=== PATIENT | male | born 1940 | race Caucasian/White ===

== ENCOUNTER 2017-08-09 13:32 | Emergency (ER) | payer BC ==
[~2017-08-09] VITALS: Ht 170.2 cm; Wt 77.0 kg
[2017-08-09 13:38] VITALS: BP 175/74; PULSE 77; RESP 15; TEMP 98.5; O2SAT 98
--- NOTE | 2017-08-09 14:03 | PD ---
HPI Chief Complaint: Skin Problem Time Seen by Provider: 13:46 Travel History International Travel<30 days: No Contact w/Intl Traveler<30days: No Traveled to known affect area: No History of Present Illness HPI 77-year-old male with a history of diabetes peripheral neuropathy presents emergency department complaining of a lesion to the left second toe that has been present for approximately 8 days. Patient states that initially there was a blister present that has since popped and has developed an ulcer. Patient states that the pain is minimal as he does have neuropathy. Patient denies fever, chills, nausea, vomiting, diarrhea. States his blood sugars are usually under control in the 100s however, because patient is on vacation, his blood sugar has been over 200. Patient states that he does see a typing office worker regularly when home. PFSH Past Medical History Cerebrovascular Accident: Yes (effected the speech ) Diabetes: Yes Patient Takes Glucophage: Yes (metformin) Hypertension: Yes Past Surgical History Coronary Stent: Yes Social History Alcohol Use: No Tobacco Use: No Substance Use: No Allergies-Medications (Allergen,Severity, Reaction): Coded Allergies: No Known Allergies (Unverified , 08/09/17) Reported Meds & Prescriptions Reported Meds & Active Scripts Active Clindamycin (Clindamycin HCl) 300 Mg Cap 300 Mg PO TID 10 Days Cipro (Ciprofloxacin HCl) 500 Mg Tab 500 Mg PO BID 10 Days Reported Fish Oil + D3 (Fish Oil-Cholecalciferol) 1,200-1,000 Mg-Unit Cap 1 Cap PO DAILY Tylenol Extra Strength (Acetaminophen) 500 Mg Tablet 2 Tab PO HS Tylenol Arthritis (Acetaminophen) 650 Mg Tablet.er 2 Tab PO DAILY Memantine 10 Mg Tab 10 Mg PO BID Plavix (Clopidogrel Bisulfate) 75 Mg Tab 75 Mg PO DAILY Aspirin 81 Mg Chew 81 Mg CHEW DAILY Nitroglycerin SL (Nitroglycerin) 0.4 Mg Subl 0.4 Mg SL DIRECTED PRN ONE TABLET UNDER THE TONGUE NEEDED FOR CHEST PAIN, MAY REPEAT EVERY FIVE MINUTES FOR A TOTAL OF 3 DOSES OR CALL 911 IF NO RELIEF Atorvastatin (Atorvastatin Calcium) 40 Mg Tab 40 Mg PO HS Lantus Inj (Insulin Glargine) 1,000 Unit/10 Ml Vial 40 Units SQ HS Lisinopril 40 Mg Tab 40 Mg PO DAILY Tamsulosin (Tamsulosin HCl) 0.4 Mg Cap 0.4 Mg PO HS Donepezil 10 Mg Tab 10 Mg PO HS Omeprazole 40 Mg Cap 40 Mg PO DAILY Metformin (Metformin HCl) 1,000 Mg Tab 1,000 Mg PO BIDPC Review of Systems Except as stated in HPI: all other systems reviewed are Neg Physical Exam Narrative GENERAL: Well-nourished in no apparent distress SKIN: Focused skin assessment warm/dry. HEAD: Atraumatic. Normocephalic. EYES: Pupils equal and round. No scleral icterus. No injection or drainage. ENT: No nasal bleeding or discharge. Mucous membranes pink and moist. NECK: Trachea midline. No JVD. CARDIOVASCULAR: Regular rate and rhythm. No murmur appreciated. RESPIRATORY: No accessory muscle use. Clear to auscultation. Breath sounds equal bilaterally. MUSCULOSKELETAL: No obvious deformities. No clubbing. No cyanosis. No edema. No CVA tenderness Left foot- 2nd toe, distal phalanges, medial aspect, 1cm, round ulceration with central necrosis, non tender to palp. NEUROLOGICAL: Awake and alert. No obvious cranial nerve deficits. Motor grossly within normal limits. Normal speech. PSYCHIATRIC: Appropriate mood and affect; insight and judgment normal. Data Data Last Documented VS Vital Signs Date Time Temp Pulse Resp B/P (MAP) Pulse Ox O2 Delivery O2 Flow Rate FiO2 08/09/17 17:15 08/09/17 16:45 75 19 97 Room Air 08/09/17 13:38 98.5 Orders Orders Basic Metabolic Panel (Bmp) (08/09/17 13:58) Complete Blood Count With Diff (08/09/17 13:58) Wound Culture And Gram Stain (08/09/17 13:58) Westergren Sedimentation Rate (08/09/17 13:58) C-Reactive Protein (Crp) (08/09/17 13:58) Blood Culture (08/09/17 13:58) Foot, Limited (2vws) (08/09/17 ) Vancomycin Inj (Vancomycin Inj) (08/09/17 14:45) Consult Podiatry (08/09/17 ) Ed Discharge Order (08/09/17 16:55) (Hub Use Only)Inp Phy Cons/Ref (08/09/17 17:20) Labs Laboratory Tests Test 08/09/17 14:20 White Blood Count 8.6 TH/MM3 Red Blood Count 3.40 MIL/MM3 Hemoglobin 10.5 GM/DL Hematocrit 28.8 % Mean Corpuscular Volume 84.7 FL Mean Corpuscular Hemoglobin 30.8 PG Mean Corpuscular Hemoglobin Concent 36.4 % Red Cell Distribution Width 15.2 % Platelet Count 209 TH/MM3 Mean Platelet Volume 8.2 FL Neutrophils (%) (Auto) 77.0 % Lymphocytes (%) (Auto) 13.7 % Monocytes (%) (Auto) 7.0 % Eosinophils (%) (Auto) 1.7 % Basophils (%) (Auto) 0.6 % Neutrophils # (Auto) 6.6 TH/MM3 Lymphocytes # (Auto) 1.2 TH/MM3 Monocytes # (Auto) 0.6 TH/MM3 Eosinophils # (Auto) 0.1 TH/MM3 Basophils # (Auto) 0.0 TH/MM3 CBC Comment DIFF FINAL Differential Comment Erythrocyte Sedimentation Rate 44 mm/hr Blood Urea Nitrogen 19 MG/DL Creatinine 1.12 MG/DL Random Glucose 243 MG/DL Calcium Level 8.5 MG/DL Sodium Level 136 MEQ/L Potassium Level 4.8 MEQ/L Chloride Level 102 MEQ/L Carbon Dioxide Level 27.8 MEQ/L Anion Gap 6 MEQ/L Estimat Glomerular Filtration Rate 63 ML/MIN C-Reactive Protein 0.49 MG/DL MDM Medical Decision Making Medical Screen Exam Complete: Yes Emergency Medical Condition: Yes Differential Diagnosis Left second toe osteo-myelitis, cellulitis, diabetic ulcer Narrative Course 77-year-old male with a history of diabetes peripheral neuropathy presents emergency department complaining of a lesion to the left second toe that has been present for approximately 8 days. Patient states that initially there was a blister present that has since popped and has developed an ulcer. Patient states that the pain is minimal as he does have neuropathy. Patient denies fever, chills, nausea, vomiting, diarrhea. States his blood sugars are usually under control in the 100s however, because patient is on vacation, his blood sugar has been over 200. Patient states that he does see a typing office worker regularly when home. Vitals stable. Wound culture taken although scant discharge. Vancomycin 1g administered. Xray-no evidence of erosions, fractures. No acute process. labs- CRP mildly elevated at 0.49, no leukocytosis I spoke with Dr. Lee, podiatry, who said she would examine the patient. She explained to the patient that they may follow up with her before departing [facility]. Pt will be discharged with Cipro and clindamycin at recommendation of Dr. Lee Advised to follow up with his typing office worker upon return home. Advised to keep the area clean and dry. Consider toe separators to reduce the pressure of the toe. Patient advised to return for worsening or persistent symptoms. Diagnosis Primary Impression: Diabetic ulcer of foot, limited to breakdown of skin Qualified Codes: E11.621 - Type 2 diabetes mellitus with foot ulcer; L97.521 - Non-pressure chronic ulcer of other part of left foot limited to breakdown of skin Referrals: Lilliam Lee DPOrestes Additional Instructions: Follow-up podiatry as discussed. Take all medications as prescribed. I discussed use a thick gauze or toe separators to reduce the pressure onto the toe. If you develop increased redness, swelling, pain return to the emergency room immediately. Scripts Clindamycin (Clindamycin) 300 Mg Cap 300 MG PO TID for Infection for 10 Days, CAP 0 Refills Prov: Caryn Clarke 08/09/17 Ciprofloxacin (Cipro) 500 Mg Tab 500 MG PO BID for Infection for 10 Days, #20 TAB 0 Refills Prov: Caryn Clarke 08/09/17 Disposition: 01 DISCHARGE HOME Condition: Stable Caryn Clarke Aug 09, 2017 14:03
[2017-08-09] MEDS ORDERED: VANCOMYCIN INJ 1,000 MG in SODIUM CHLOR 0.9% 250 ML INJ 250 ML IV ONE (14:45)
[2017-08-09 14:53] LABS: AUTOMATED NEUTROPHIL # 6.6 TH/MM3 (1.8-7.7); BASOPHIL % 0.6 % (0.0-2.0); BICARBONATE 27.8 MEQ/L (21.0-32.0); C-REACTIVE PROTEIN 0.49 MG/DL (0.00-0.30); CALCIUM 8.5 MG/DL (8.5-10.1); CREATININE 1.12 MG/DL (0.60-1.30); EOSINOPHIL # 0.1 TH/MM3 (0-0.4); EOSINOPHIL % 1.7 % (0.0-4.0); HEMATOCRIT 28.8 % (39.0-51.0); HEMOGLOBIN 10.5 GM/DL (13.0-17.0); LYMPH % 13.7 % (9.0-44.0); LYMPHOCYTE # 1.2 TH/MM3 (1.0-4.8); MEAN CELL VOLUME 84.7 FL (80.0-100.0); MEAN CORPUSCULAR HEMOGLOBIN 30.8 PG (27.0-34.0); MEAN PLATELET VOLUME 8.2 FL (7.0-11.0); MONOCYTE # 0.6 TH/MM3 (0-0.9); PLATELET COUNT 209 TH/MM3 (150-450); RED CELL DISTRIBUTION WIDTH 15.2 % (11.6-17.2); WHITE BLOOD COUNT 8.6 TH/MM3 (4.0-11.0)
[2017-08-09 14:58] LABS: MEAN CORPUSCULAR HGB CONC 36.4 % (32.0-36.0)
[2017-08-09] MEDS ORDERED: LISI40TA PO (15:32)
[2017-08-09] MEDS ORDERED: ATOR40TA16 PO (15:32)
[2017-08-09] MEDS ORDERED: TAMS0.4C4 PO (15:32)
[2017-08-09] MEDS ORDERED: FISHCAP4 PO (15:32)
[2017-08-09] MEDS ORDERED: OMEP40CA2 PO (15:32)
[2017-08-09] MEDS ORDERED: PLAV75TA29 PO (15:32)
[2017-08-09] MEDS ORDERED: MEMA1TAB2 PO (15:32)
[2017-08-09] MEDS ORDERED: ACET650T67 PO (15:32)
[2017-08-09] MEDS ORDERED: DONE10TA7 PO (15:32)
[2017-08-09] MEDS ORDERED: ASPI-516 CHEW (15:32)
[2017-08-09] MEDS ORDERED: NITR1SUB3 SL (15:32)
[2017-08-09] MEDS ORDERED: ACET-822 PO (15:32)
[2017-08-09] MEDS ORDERED: METF1000 PO (15:32)
[2017-08-09] MEDS ORDERED: LANTUS2P SQ (15:32)
--- NOTE | 2017-08-09 16:07 | RADRPT ---
EXAM DATE/TIME: 08/09/2017 15:07 [facility] COMPARISON: No previous studies available for comparison. INDICATIONS : Left foot second metatarsal redness and swelling. MEDICAL HISTORY : Diabetes mellitus type II. SURGICAL HISTORY : None. ENCOUNTER: Initial ACUITY: 1 day PAIN SCORE: 0/10 LOCATION: Left foot FINDINGS: Two view examination of the left foot demonstrates no soft tissue swelling, dislocation, or fracture. The calcaneus is intact. Moderate enthesopathic changes about the base of the 5th metatarsus. Pro minent unfused retrocalcaneal spur. Bony mineralization is normal. Vascular calcification about the ankle and interdigital vessels. CONCLUSION: No acute findings. The osseous structures of the 2nd digit are intact. Poncho Ford MD on August 09, 2017 at 16:03 Board Certified Radiologist. This report was verified electronically.
[2017-08-09 16:45] VITALS: BP 166/75; PULSE 75; RESP 19; O2SAT 97
[2017-08-09] MEDS ORDERED: CLIN300C5 PO (16:53)
[2017-08-09] MEDS ORDERED: CIPR-9 PO (16:53)
--- NOTE | 2017-08-09 22:19 | PD.CONS ---
History of Present Illness Consult Requested By Podiatry Reason for Consult Left second digit ulcer Primary Care Physician Unknown Diagnoses: History of Present Illness Podiatry consult for a 77-year-old male with a history of diabetes and peripheral neuropathy who presented to the emergency department for a ulcer located to the left second toe he says it has been there approximately 8 days he has been soaking it in the pool daily. States it started as a blister and it popped [place] he denies nausea vomiting fevers or chills states his blood sugars are usually under control but because he has been on vacation they have been over 200 he does see a mechanic marine engine regularly at home Review of Systems Constitutional: DENIES: Fever Respiratory: DENIES: Cough, Shortness of breath Cardiovascular: COMPLAINS OF: Lower Extremity Edema, DENIES: Chest pain Integumentary: DENIES: Abnormal pigmentation Hematologic/lymphatic: DENIES: Lymphadenopathy Psychiatric: DENIES: Anxiety, Confusion, Mood changes Past Family Social History Allergies: Coded Allergies: No Known Allergies (Unverified , 08/09/17) Past Medical History Diabetes peripheral neuropathy Physical Exam Vital Signs Vital Signs Date Time Temp Pulse Resp B/P (MAP) Pulse Ox O2 Delivery O2 Flow Rate FiO2 08/09/17 17:15 08/09/17 16:45 75 19 166/75 (105) 97 Room Air 08/09/17 13:52 18 08/09/17 13:38 98.5 77 15 175/74 (107) 98 Physical Exam Lower extremity physical exam: Vascular: Dorsalis pedis nonpalpable, posterior tibial nonpalpable. Capillary refill time within normal limits to digits 5 bilateral foot. Edema present bilateral foot and ankle Neuro: Gross sensation intact to bilateral lower extremity. Pinpoint sensation decreased. No hyperalgesia noted to bilateral lower extremity Dermatology: Normal temperature and turgor to bilateral lower extremity. Increased erythema noted to left second digit with ulceration present to medial aspect ulceration is because the second and hallux abut each other. Ulceration with granular base laceration noted periwound no probe to bone erythema extending into MPJ. Musculoskeletal: Tender to palpation to left second digit. Laboratory Laboratory Tests Test 08/09/17 14:20 White Blood Count 8.6 Red Blood Count 3.40 Hemoglobin 10.5 Hematocrit 28.8 Mean Corpuscular Volume 84.7 Mean Corpuscular Hemoglobin 30.8 Mean Corpuscular Hemoglobin Concent 36.4 Red Cell Distribution Width 15.2 Platelet Count 209 Mean Platelet Volume 8.2 Neutrophils (%) (Auto) 77.0 Lymphocytes (%) (Auto) 13.7 Monocytes (%) (Auto) 7.0 Eosinophils (%) (Auto) 1.7 Basophils (%) (Auto) 0.6 Neutrophils # (Auto) 6.6 Lymphocytes # (Auto) 1.2 Monocytes # (Auto) 0.6 Eosinophils # (Auto) 0.1 Basophils # (Auto) 0.0 CBC Comment DIFF FINAL Differential Comment Erythrocyte Sedimentation Rate 44 Blood Urea Nitrogen 19 Creatinine 1.12 Random Glucose 243 Calcium Level 8.5 Sodium Level 136 Potassium Level 4.8 Chloride Level 102 Carbon Dioxide Level 27.8 Anion Gap 6 Estimat Glomerular Filtration Rate 63 C-Reactive Protein 0.49 Date/Time Source Procedure Growth Status 08/09/17 14:20 Blood Peripheral Aerobic Blood Culture Pending Received 08/09/17 14:20 Blood Peripheral Anaerobic Blood Culture Pending Received 08/09/17 14:30 Wound Toe Gram Stain Pending Received 08/09/17 14:30 Wound Toe Wound Culture Pending Received Result Diagram: 08/09/17 1420 08/09/17 1420 Imaging Last Impressions Foot X-Ray 08/09/17 0000 Signed Impressions: Service Date/Time: Wednesday, August 09, 2017 15:07 - CONCLUSION: No acute findings. The osseous structures of the 2nd digit are intact. Poncho Ford MD Assessment and Plan Assessment and Plan 77-year-old male with left second digit infection Patient evaluated and examined with all questions answered and bedside Recommend oral antibiotics clindamycin and Cipro Dressed with Silvadene and DSD Patient to follow-up in office on his way back up [place] on in [place] Follow-up is with Dr. LEWIS [address] [place] [address] [address], [place], [place] phone # [phone] Lilliam Lewis DPM Aug 09, 2017 22:19
== END 2017-08-09 17:15 | disposition home or self-care (01) ==
LOC: NEPC 13:32
DX: E11.621 Type 2 diabetes mellitus with foot ulcer (principal); L97.521 Non-pressure chronic ulcer of other part of left foot limited to breakdown of skin; B95.1 Streptococcus, group B, as the cause of diseases classified elsewhere; E11.42 Type 2 diabetes mellitus with diabetic polyneuropathy; I10 Essential (primary) hypertension; Z86.73 Personal history of transient ischemic attack (TIA), and cerebral infarction without residual deficits; Z95.5 Presence of coronary angioplasty implant and graft; Z79.84 Long term (current) use of oral hypoglycemic drugs; Z79.82 Long term (current) use of aspirin; Z79.899 Other long term (current) drug therapy
CPT/HCPCS: 73620; 80048; 85025; 85652; 86140; 86403; 87040; 87070; 87077; 87186; 96365; 99284; J3370; J7050; 87205